=== PATIENT | female | born 1985 | race Caucasian/White ===

== ENCOUNTER 2019-06-02 13:14 | Emergency (ER) | payer OTHER ==
[~2019-06-02] VITALS: Ht 165.1 cm; Wt 44.5 kg
[2019-06-02] MEDS ORDERED: AMOX1TAB5 PO (17:17)
[2019-06-02] MEDS ORDERED: TUSNEL LIQUID178 ML PO (17:17)
[2019-06-02] MEDS ORDERED: MEDROLPACK PO (17:17)
== END 2019-06-02 17:21 | disposition home or self-care (01) ==
LOC: ER 13:14
DX: J06.9 Acute upper respiratory infection, unspecified (principal); R09.81 Nasal congestion; R51 Headache

== ENCOUNTER 2019-06-30 15:46 | Emergency (ER) | payer OTHER ==
[~2019-06-30] VITALS: Ht 165.1 cm; Wt 47.6 kg
[~2019-06-30 15:46] MED LIST: AMOX1TAB5 PO; MEDROLPACK PO; TUSNEL LIQUID178 ML PO
== END 2019-06-30 17:40 | disposition home or self-care (01) ==
LOC: ER 15:46
DX: B37.3 Candidiasis of vulva and vagina (principal)

== ENCOUNTER 2019-09-25 11:18 | Emergency (ER) | payer OTHER ==
[~2019-09-25] VITALS: Ht 167.6 cm; Wt 40.8 kg
== END 2019-09-25 20:41 | disposition home or self-care (01) ==
LOC: ER 11:18
DX: M62.830 Muscle spasm of back (principal); G57.01 Lesion of sciatic nerve, right lower limb

== ENCOUNTER 2021-04-10 14:39 | Emergency (ER) | payer OTHER ==
[~2021-04-10] VITALS: Ht 157.5 cm; Wt 38.6 kg
[2021-04-10] MEDS ORDERED: ZYRTEC10 M3 PO (18:41)
[2021-04-10] MEDS ORDERED: BENZONATATE200 M1 PO (18:41)
[2021-04-10] MEDS ORDERED: VISTARIL25 MG PO (18:42)
== END 2021-04-10 18:56 | disposition home or self-care (01) ==
LOC: ER 14:39
DX: R05 Cough (principal); Z20.822 Contact with and (suspected) exposure to COVID-19